=== PATIENT | male | born 1945 | race Caucasian/White ===

== ENCOUNTER 2022-08-20 09:27 | Outpatient (CLI) | payer MEDICARE, BC, SELFPAY | END 2022-08-20 09:28 | disposition home or self-care (01) | LOC: AMB 08-21 09:26 | PROVIDERS: Visit Provider Family Medicine | DX: R06.09 Other forms of dyspnea (principal); R55 Syncope and collapse | CPT/HCPCS: A0425; A0427 ==

== ENCOUNTER 2023-01-28 09:30 | Outpatient (RCR) | payer MEDICARE, BC, SELFPAY | END 2023-04-29 13:42 | disposition home or self-care (01) | DX: M54.50 Low back pain, unspecified (principal); G89.29 Other chronic pain; M62.81 Muscle weakness (generalized); R26.9 Unspecified abnormalities of gait and mobility; M25.652 Stiffness of left hip, not elsewhere classified; R26.81 Unsteadiness on feet; Z51.89 Encounter for other specified aftercare | CPT/HCPCS: 97110; 97163 ==

== ENCOUNTER 2024-01-02 09:41 | Outpatient (CLI) | payer MEDICARE, BC, SELFPAY | END 2024-01-02 09:42 | disposition home or self-care (01) | LOC: RAD 09:42 | PROVIDERS: PCP Family Medicine; Visit Provider Internal Medicine Cardiovascular Disease | DX: I25.10 Atherosclerotic heart disease of native coronary artery without angina pectoris (principal); R94.30 Abnormal result of cardiovascular function study, unspecified | CPT/HCPCS: 93306 ==

== ENCOUNTER 2024-04-12 15:23 | Outpatient (CLI) | payer MEDICARE, BC, SELFPAY ==
[2024-04-12 18:30] LABS: Chloride* 101 mmol/L (96-114); Sodium* 134 mmol/L (135-149)
[2024-04-12 18:33] LABS: Anion Gap 11 mEq/L (7-15); Blood Urea Nitrogen* 26 mg/dL (7-30); Carbon Dioxide* 22 mmol/L (20-32); Creatinine* 0.8 mg/dL (0.5-1.5); Estimated Glomerular Filt Rate 91 ml/min
[2024-04-12 18:34] LABS: Calcium* 9.6 mg/dL (8.4-10.6); Glucose* 95 mg/dL (60-115)
[2024-04-12 18:54] LABS: NT Pro B Type NatriureticPept* 263 pg/mL
== END 2024-04-12 15:24 | disposition home or self-care (01) ==
PROVIDERS: PCP Family Medicine; Visit Provider Nurse Practitioner
DX: I50.21 Acute systolic (congestive) heart failure (principal)
CPT/HCPCS: 36415; 80048; 83880